=== PATIENT | female | born 1930 | race Caucasian/White ===

== ENCOUNTER 2019-09-02 12:28 | Emergency (ER) | payer OTHER ==
[~2019-09-02] VITALS: Ht 152.4 cm; Wt 61.2 kg
[2019-09-02] MEDS ORDERED: ZESTORETIC 20-1 EACH (12:45)
[2019-09-02] MEDS ORDERED: JANUVIA50 MG (12:45)
[2019-09-02] MEDS ORDERED: LEVOCETIRI2.5 MG/5 M (12:45)
[2019-09-02] MEDS ORDERED: SERTRALINE20 MG/1 ML (12:46)
[2019-09-02] MEDS ORDERED: HORIZANT300 MG (12:46)
[2019-09-02] MEDS ORDERED: ALENDRONATE SOD70 MG (12:46)
[2019-09-02] MEDS ORDERED: ZITHROMAX500 MG PO (15:06)
[2019-09-02] MEDS ORDERED: TUSNEL LIQUID178 ML PO (15:06)
== END 2019-09-02 15:07 | disposition home or self-care (01) ==
LOC: ER 12:28
DX: J06.9 Acute upper respiratory infection, unspecified (principal)